=== PATIENT | male | born 1955 | race American Indian/Alaskan Native ===

== ENCOUNTER 2018-03-09 16:31 | Inpatient (IN) | payer MEDICARE ==
[2018-03-04 20:11] VITALS: BMI 26.7
--- NOTE | 2018-03-09 21:41 | CP.PCM.HP ---
History of Present Illness - History of Present Illness History of Present Illness: CC: rehab after cerebellar CVA HPI: This is a 63 y/o male with MHx significant for HTN, HLD, DM2, and recent cereballer CVA who comes in for acute rehab. Patient does not want to engage in interview, and provides only minimum answers and information. Denies any CP/SOB, dizziness, or focal weakness at this time. Apparently he had come into the ER with c/o SUN and lightheadedness worsening with movement. MRI at the time showed an acute cerebellar infarct. Patient appears to have not met criteria for TPA. ROS: Patient does not comply with ROS MHx: HTN, ?HLD, DM2, CVA SHx: Denies Allergies: states 'no', but NSAIDs listed as allergy Medications: Per list Family Hx: Denies Social Hx: Lives with family, denies tobacco (though listed as being a current smoker in other documentation), denies EtOH Does not provide info on surrogate dec mkr Present on Admission - Present on Admission Any Indicators Present on Admission: No Past Patient History - Infectious Disease Hx of Infectious Diseases: None - Past Social History Smoking Status: Current Some Days Smoker - CARDIAC Hx Cardiac Disorders: Yes Hx Hypertension: Yes - PULMONARY Hx Respiratory Disorders: Yes (SMOKES CIGARETTES 1 A DAY) - NEUROLOGICAL HX Cerebrovascular Accident: Yes (2017 LEFT SIDED WEAKNESS) - HEENT Hx HEENT Problems: No - RENAL Hx Chronic Kidney Disease: No - ENDOCRINE/METABOLIC Hx Diabetes Mellitus Type 2: Yes - HEMATOLOGICAL/ONCOLOGICAL Hx Blood Disorders: No - INTEGUMENTARY Hx Dermatological Problems: Yes Other/Comment: SCAR TO RIGHT LOWER BACK-BACK SX - MUSCULOSKELETAL/RHEUMATOLOGICAL Hx Falls: Yes - GASTROINTESTINAL Hx Gastrointestinal Disorders: No - GENITOURINARY/GYNECOLOGICAL Hx Genitourinary Disorders: No - PSYCHIATRIC Hx Psychophysiologic Disorder: No Hx Substance Use: No - SURGICAL HISTORY Hx Surgeries: Yes (RIGHTLATERAL LOWER BACK SX.) - ANESTHESIA Hx Anesthesia: No Meds Allergies/Adverse Reactions: Allergies Allergy/AdvReac Type Severity Reaction Status Date / Time NSAIDS (Non-Steroidal AdvReac Intermediate NAUSEA Verified 03/09/18 16:40 Anti-Inflamma Physical Exam - Constitutional Appears: No Acute Distress - Head Exam Head Exam: ATRAUMATIC, NORMOCEPHALIC - Eye Exam Eye Exam: EOMI, PERRL - ENT Exam ENT Exam: Mucous Membranes Moist - Neck Exam Neck exam: Positive for: Full Rom - Respiratory Exam Respiratory Exam: Clear to Auscultation Bilateral, NORMAL BREATHING PATTERN - Cardiovascular Exam Cardiovascular Exam: REGULAR RHYTHM, +S1, +S2 - GI/Abdominal Exam GI & Abdominal Exam: Normal Bowel Sounds, Soft - Extremities Exam Extremities exam: Positive for: full ROM, normal inspection - Neurological Exam Neurological exam: Alert, CN II-XII Intact (Patient does not participate in exam), Oriented x3 - Psychiatric Exam Psychiatric exam: Normal Affect, Normal Mood - Skin Skin Exam: Dry, Warm Assessment & Plan (1) Status post cerebrovascular accident Assessment and Plan: 63 y/o male with HTN, ?HLD, and DM2 presenting to rehab after cerebellar CVA. 1) s/p CVA -Rehab consult -PT/OT -control HTN, DM2, HLD -Cont ASA, Plavix, Lipitor 2) HTN -- cont lisinopril 3) DM2 -- continue metformin, glipizide; DM2 diet; accucheck with SSI for breakthru ser gluc 4) HLD -- statin as above 5) DVT PPx -- SQ Lovenox Status: Acute (2) HTN (hypertension) Status: Acute (3) HLD (hyperlipidemia) Status: Acute (4) DM2 (diabetes mellitus, type 2) Status: Acute (5) DVT prophylaxis Status: Acute
[2018-03-09] MEDS: Insulin Regular 100 units/ml SC SCH (23:11)
[2018-03-10 06:32] LABS: HEMOGLOBIN 14.6 g/dL (12.0-18.0); MEAN CELL VOLUME 94.5 fl (80.0-94.0); MEAN CORPUSCULAR HEMOGLOBIN 32.2 pg (27.0-31.0); RBC 4.54 Mil/uL (4.40-5.90); RED CELL DISTRIBUTION WIDTH 13.5 % (11.5-14.5); WHITE BLOOD COUNT 5.6 K/uL (4.8-10.8)
[2018-03-10 06:46] LABS: BLOOD UREA NITROGEN 27 mg/dl (9-20); CALCIUM 10.4 mg/dL (8.4-10.2); GFR NON-AFRICAN AMERICAN > 60
[2018-03-10] MEDS: Insulin Regular 100 units/ml SC SCH ×4 (07:01→21:00)
[2018-03-10] MEDS: Ammonium Lactate 12% Cream (140 g) TOP SCH (08:28)
[2018-03-10] MEDS: GlipiZIDE 5 mg SR Tab PO SCH (08:29)
[2018-03-10] MEDS: Enoxaparin 40 mg Syringe SC SCH (08:43)
[2018-03-10] MEDS: Pantoprazole 40 mg EC Tab PO SCH (08:46)
--- NOTE | 2018-03-10 20:06 | PCM.OPOC ---
Physiatry Overall Plan of Care - Overall Plan of Care Estimated Length of Stay in Weeks: 3 Rehab Impairment: Mobility, Gait, Cognition, Balance, Coordination Etiologic Diagnosis: Cerebrovascular Accident Rehab/Medical Prognosis: Fair - Anticipated Interventions Physical Therapy:: Yes Occupational Therapy:: Yes Speech Therapy:: Yes Recreational Therapy:: Yes - Therapy Goals Bed Mobility: Independent Ambulation: Supervision Functional Positional Changes:: Independent - Functional Outcomes Functional Outcomes: fair - Discharge Plan Identification of Barriers to Discharge: Cognition Discharge Destination: Home
--- NOTE | 2018-03-10 20:08 | CP.PCM.CON ---
History of Present Illness - History of Present Illness History of Present Illness: 63 year old male admitted with diagnosis of CVA,with problems of HTN, DM, hypermagnesiemia now for acute rehab Review of Systems - Musculoskeletal Musculoskeletal: Abnormal Gait, Muscle Weakness - Neurological Neurological: Abnormal Gait, Lack of Coordination Past Patient History - Infectious Disease Hx of Infectious Diseases: None - Past Medical History & Family History Past Medical History?: Yes - Past Social History Smoking Status: Current Some Days Smoker - CARDIAC Hx Hypercholesterolemia: Yes Hx Hypertension: Yes - PULMONARY Hx Respiratory Disorders: Yes (SMOKES CIGARETTES 1 A DAY) - NEUROLOGICAL HX Cerebrovascular Accident: Yes - HEENT Hx HEENT Problems: No - RENAL Hx Chronic Kidney Disease: No - ENDOCRINE/METABOLIC Hx Diabetes Mellitus Type 2: Yes - HEMATOLOGICAL/ONCOLOGICAL Hx Blood Disorders: No - INTEGUMENTARY Hx Dermatological Problems: Yes Other/Comment: SCAR TO RIGHT LOWER BACK-BACK SX - MUSCULOSKELETAL/RHEUMATOLOGICAL Hx Falls: Yes - GASTROINTESTINAL Hx Gastrointestinal Disorders: No - GENITOURINARY/GYNECOLOGICAL Hx Genitourinary Disorders: No - PSYCHIATRIC Hx Psychophysiologic Disorder: No Hx Substance Use: No - SURGICAL HISTORY Hx Surgeries: Yes (RIGHTLATERAL LOWER BACK SX.) - ANESTHESIA Hx Anesthesia: No Meds Allergies/Adverse Reactions: Allergies Allergy/AdvReac Type Severity Reaction Status Date / Time No Known Allergies Allergy Verified 03/10/18 05:45 - Medications Medications: Current Medications Aspirin (Ecotrin) 81 mg PO DAILY [facility] Last Admin: 03/10/18 08:29 Dose: 81 mg Atorvastatin Calcium (Lipitor) 40 mg PO DIN [facility] Last Admin: 03/10/18 17:11 Dose: 40 mg Clopidogrel Bisulfate (Plavix) 75 mg PO DAILY [facility] Last Admin: 03/10/18 08:45 Dose: 75 mg Enoxaparin Sodium (Lovenox) 40 mg SC DAILY [facility]; Protocol Last Admin: 03/10/18 08:43 Dose: 40 mg Glipizide (Glucotrol Xl) 5 mg PO DAILY [facility] Last Admin: 03/10/18 08:29 Dose: 5 mg Insulin Human Regular (Humulin R) [address] [facility]; Protocol Last Admin: 03/10/18 17:13 Dose: Not Given Lactic Acid (Lac-Hydrin 12% Cream (140 G)) 0 ea TOP DAILY [facility] Last Admin: 03/10/18 08:28 Dose: 1 applic Lisinopril (Zestril) 20 mg PO DAILY [facility] Last Admin: 03/10/18 08:29 Dose: 20 mg Meclizine HCl (Antivert) 12.5 mg PO Q8 [facility] Last Admin: 03/10/18 13:46 Dose: 12.5 mg Metformin HCl (Glucophage) 1,000 mg PO BID [facility] Last Admin: 03/10/18 17:14 Dose: Not Given Pantoprazole Sodium (Protonix Ec Tab) 40 mg PO DAILY [facility] Last Admin: 03/10/18 08:46 Dose: 40 mg Physical Exam - Constitutional Appears: Well - Head Exam Head Exam: ATRAUMATIC, NORMAL INSPECTION, NORMOCEPHALIC - Eye Exam Eye Exam: EOMI, Normal appearance Pupil Exam: NORMAL ACCOMODATION, PERRL - ENT Exam ENT Exam: Mucous Membranes Moist, Normal Exam - Neck Exam Neck exam: Positive for: Normal Inspection - Respiratory Exam Respiratory Exam: Clear to Auscultation Bilateral, NORMAL BREATHING PATTERN - Cardiovascular Exam Cardiovascular Exam: REGULAR RHYTHM - GI/Abdominal Exam GI & Abdominal Exam: Normal Bowel Sounds - Rectal Exam Rectal Exam: NORMAL INSPECTION - Exam External exam: NORMAL EXTERNAL EXAM - Extremities Exam Extremities exam: Positive for: normal inspection Additional comments: muscle strength 3/5 - Back Exam Back exam: NORMAL INSPECTION - Neurological Exam Neurological exam: Alert, Reflexes Normal - Psychiatric Exam Psychiatric exam: Normal Mood - Skin Skin Exam: Normal Color, Warm Results - Vital Signs Recent Vital Signs: Last Vital Signs Temp 98.1 F 03/10/18 08:14 Pulse 83 03/10/18 09:32 Resp 22 03/10/18 08:14 BP 128/59 L 03/10/18 08:29 Pulse Ox 97 03/10/18 08:14 - Labs Result Diagrams: 03/10/18 05:15 03/10/18 05:15 Labs: Laboratory Results - last 24 hr 03/09/18 03/10/18 03/10/18 22:57 05:15 05:15 WBC 5.6 RBC 4.54 Hgb 14.6 Hct 42.9 MCV 94.5 H MCH 32.2 H MCHC 34.0 RDW 13.5 Plt Count 278 Sodium 138 Potassium 4.6 Chloride 102 Carbon Dioxide 26 Anion Gap 15 BUN 27 H Creatinine 1.1 Est GFR ( Amer) > 60 Est GFR (Non-Af Amer) > 60 POC Glucose (mg/dL) 145 H Random Glucose 119 H Calcium 10.4 H 03/10/18 03/10/18 03/10/18 06:51 11:32 17:30 WBC RBC Hgb Hct MCV MCH MCHC RDW Plt Count Sodium Potassium Chloride Carbon Dioxide Anion Gap BUN Creatinine Est GFR ( Amer) Est GFR (Non-Af Amer) POC Glucose (mg/dL) 101 123 H 98 Random Glucose Calcium Assessment & Plan (1) DM2 (diabetes mellitus, type 2) Status: Acute (2) DVT prophylaxis Status: Acute (3) HLD (hyperlipidemia) Status: Acute (4) HTN (hypertension) Status: Acute (5) Status post cerebrovascular accident Assessment and Plan: plan for physical, occupational, recreational and speech therapy program for range of motion, strengthening, transfers and gait training . Written overall plan of care. Status: Acute (6) Dizziness Status: Acute (7) Near syncope Status: Acute
[2018-03-11] MEDS: Insulin Regular 100 units/ml SC SCH ×4 (07:00→21:29)
[2018-03-11] MEDS: Ammonium Lactate 12% Cream (140 g) TOP SCH (08:45)
[2018-03-11] MEDS: Pantoprazole 40 mg EC Tab PO SCH (08:47)
[2018-03-11] MEDS: GlipiZIDE 5 mg SR Tab PO SCH (08:47)
[2018-03-11] MEDS: Enoxaparin 40 mg Syringe SC SCH (08:47)
--- NOTE | 2018-03-11 09:57 | CP.PCM.PN ---
Subjective - Date & Time of Evaluation Date of Evaluation: 03/11/18 Time of Evaluation: 10:00 - Subjective Subjective: Patient seen bedside . Appears simon,flat affect, angry , responding with few words .Hemodynmaically stable,. afebrile No acute issues overnight Objective - Vital Signs/Intake and Output Vital Signs (last 24 hours): Temp Pulse Resp BP Pulse Ox 97.8 F 81 19 100/54 L 98 03/11/18 08:23 03/11/18 08:23 03/11/18 08:23 03/11/18 08:47 03/11/18 08:23 - Medications Medications: Current Medications Aspirin (Ecotrin) 81 mg PO DAILY [facility] Last Admin: 03/11/18 08:45 Dose: 81 mg Atorvastatin Calcium (Lipitor) 40 mg PO DIN [facility] Last Admin: 03/10/18 17:11 Dose: 40 mg Clopidogrel Bisulfate (Plavix) 75 mg PO DAILY [facility] Last Admin: 03/11/18 08:47 Dose: 75 mg Enoxaparin Sodium (Lovenox) 40 mg SC DAILY [facility]; Protocol Last Admin: 03/11/18 08:47 Dose: 40 mg Glipizide (Glucotrol Xl) 5 mg PO DAILY [facility] Last Admin: 03/11/18 08:47 Dose: 5 mg Insulin Human Regular (Humulin R) [address] [facility]; Protocol Last Admin: 03/11/18 07:00 Dose: Not Given Lactic Acid (Lac-Hydrin 12% Cream (140 G)) 0 ea TOP DAILY [facility] Last Admin: 03/11/18 08:45 Dose: 1 applic Lisinopril (Zestril) 20 mg PO DAILY [facility] Last Admin: 03/11/18 08:47 Dose: 20 mg Meclizine HCl (Antivert) 12.5 mg PO Q8 [facility] Last Admin: 03/11/18 05:40 Dose: 12.5 mg Metformin HCl (Glucophage) 1,000 mg PO BID [facility] Last Admin: 03/11/18 08:48 Dose: Not Given Pantoprazole Sodium (Protonix Ec Tab) 40 mg PO DAILY [facility] Last Admin: 03/11/18 08:47 Dose: 40 mg - Labs Labs: 03/10/18 05:15 03/10/18 05:15 - Constitutional Appears: Non-toxic, No Acute Distress - Head Exam Head Exam: ATRAUMATIC, NORMOCEPHALIC - Eye Exam Eye Exam: EOMI, PERRL Pupil Exam: NORMAL ACCOMODATION - ENT Exam ENT Exam: Mucous Membranes Moist, Normal Exam - Neck Exam Neck Exam: Full ROM, Normal Inspection - Respiratory Exam Respiratory Exam: NORMAL BREATHING PATTERN. absent: Respiratory Distress - Cardiovascular Exam Cardiovascular Exam: REGULAR RHYTHM, RRR, +S1, +S2. absent: JVD - GI/Abdominal Exam GI & Abdominal Exam: Soft, Normal Bowel Sounds. absent: Tenderness, Rebound - Rectal Exam Rectal Exam: Deferred - Extremities Exam Extremities Exam: Normal Capillary Refill, Normal Inspection. absent: Pedal Edema - Neurological Exam Neurological Exam: Alert, Awake, CN II-XII Intact, Oriented x3 - Psychiatric Exam Psychiatric exam: Flat Affect - Skin Skin Exam: Dry, Normal Color, Warm Assessment and Plan - Assessment and Plan (Free Text) Assessment: 63 y/o male with PMH of HTN, HLD, DM2, had presented recently to ER with headache and lightheadedness worsening with movement. MRI at the time showed an acute cerebellar infarct. Patient did not met criteria for TPA.Now he is in acute rehab for PT. Denies any CP/SOB, dizziness, or focal weakness at this time. 1. Acute Cerebellar infarct Continue PT on ASa, plavix, statin better BP and glycemic control psychology consult on Meclizine PRN for dizziness 2. Hypertension controlled continue lisinopril 3. DM complaining of diarrhea from Metformin and refusing to take it Decreased dose from 1000 to 850 mg po BID Increase Glucotrol from 5 to 10 mg PO QD Continue Accuchecsk, insulin coverage and diabetic diet 4. Dyslipidemia on statin 5. DVt prophylaxis on Lovenox
[2018-03-11] MEDS: GlipiZIDE 10 mg SR Tab PO SCH (10:00)
--- NOTE | 2018-03-11 12:06 | CP.PCM.PN ---
Subjective - Date & Time of Evaluation Date of Evaluation: 03/11/18 Time of Evaluation: 12:00 - Subjective Subjective: no acute complaints at present Objective - Vital Signs/Intake and Output Vital Signs (last 24 hours): Temp Pulse Resp BP Pulse Ox 97.8 F 81 19 100/54 L 98 03/11/18 08:23 03/11/18 08:23 03/11/18 08:23 03/11/18 08:47 03/11/18 08:23 - Medications Medications: Current Medications Aspirin (Ecotrin) 81 mg PO DAILY [facility] Last Admin: 03/11/18 08:45 Dose: 81 mg Atorvastatin Calcium (Lipitor) 40 mg PO DIN [facility] Last Admin: 03/10/18 17:11 Dose: 40 mg Clopidogrel Bisulfate (Plavix) 75 mg PO DAILY [facility] Last Admin: 03/11/18 08:47 Dose: 75 mg Enoxaparin Sodium (Lovenox) 40 mg SC DAILY [facility]; Protocol Last Admin: 03/11/18 08:47 Dose: 40 mg Glipizide (Glucotrol Xl) 10 mg PO BRK [facility] Last Admin: 03/11/18 10:00 Dose: Not Given Insulin Human Regular (Humulin R) 0 units SC [facility]; Protocol Last Admin: 03/11/18 11:19 Dose: Not Given Lactic Acid (Lac-Hydrin 12% Cream (140 G)) 0 ea TOP DAILY [facility] Last Admin: 03/11/18 08:45 Dose: 1 applic Lisinopril (Zestril) 20 mg PO DAILY [facility] Last Admin: 03/11/18 08:47 Dose: 20 mg Meclizine HCl (Antivert) 12.5 mg PO Q8 [facility] Last Admin: 03/11/18 05:40 Dose: 12.5 mg Metformin HCl (Glucophage) 850 mg PO BIDWM [facility] Last Admin: 03/11/18 10:00 Dose: Not Given Pantoprazole Sodium (Protonix Ec Tab) 40 mg PO DAILY [facility] Last Admin: 03/11/18 08:47 Dose: 40 mg - Labs Labs: 03/10/18 05:15 03/10/18 05:15 - Head Exam Head Exam: ATRAUMATIC, NORMAL INSPECTION, NORMOCEPHALIC - Eye Exam Eye Exam: EOMI, Normal appearance, PERRL Pupil Exam: NORMAL ACCOMODATION - ENT Exam ENT Exam: Mucous Membranes Moist, Normal Exam - Neck Exam Neck Exam: Normal Inspection - Respiratory Exam Respiratory Exam: NORMAL BREATHING PATTERN - Cardiovascular Exam Cardiovascular Exam: REGULAR RHYTHM - GI/Abdominal Exam GI & Abdominal Exam: Soft, Normal Bowel Sounds - Exam External exam: NORMAL EXTERNAL EXAM - Extremities Exam Extremities Exam: Full ROM, Normal Capillary Refill, Normal Inspection - Back Exam Back Exam: NORMAL INSPECTION - Neurological Exam Neurological Exam: Alert, Awake Neuro motor strength exam: Left Upper Extremity: 3, Right Upper Extremity: 3, Left Lower Extremity: 3, Right Lower Extremity: 3 - Psychiatric Exam Psychiatric exam: Normal Affect, Normal Mood - Skin Skin Exam: Dry, Intact Assessment and Plan (1) DM2 (diabetes mellitus, type 2) Status: Acute (2) DVT prophylaxis Status: Acute (3) HLD (hyperlipidemia) Status: Acute (4) HTN (hypertension) Status: Acute (5) Status post cerebrovascular accident Assessment & Plan: pt, ot rec and st for team conference today Status: Acute (6) Dizziness Status: Acute (7) Near syncope Status: Acute
--- NOTE | 2018-03-11 12:10 | PCM.PSYTMC ---
Acute Rehab Team Conference - - Vital Signs: Vital Signs (Last 8 Hours): Vital Signs 03/11/18 03/11/18 03/11/18 08:23 08:47 12:00 Temperature 97.8 F 97.8 F Pulse Rate 81 81 Respiratory 19 19 Rate Blood Pressure 100/59 L 100/54 L 100/59 L O2 Sat by Pulse 98 Oximetry Pain: 0 - Precautions: Precautions: Fall Prevention - Medications/Other Issues: Comment: REFUSING TO TAKE METFORMIN. AWARE - Consults: Comment: DR. RODRIGUEZ - Toileting: Toileting: Minimal Assistance - Bladder Management: Bladder Pattern: Normal Voiding Method: Toilet, Urinal Bladder Management: Supervision Other Intervention:: 0 - Transfers: Transfers: Minimal Assistance - ADL's: ADL's: Minimal Assistance - Pain Management: Other Intervention:: NONE - Patient/Family Teaching: Other Intervention:: CARE POST CVA AND SAFETY PRECAUTIONS - Goals/Time Frame: Comment: PER MULTIDISCIPLINARY CARE PLAN AND GOALS - Provider: Registered Nurse:: Brenda Cabrera Physical Therapy - Bed Mobility Bed Mobility: Contact Guard - Transfers Wheelchair to Mat: Contact Guard Sit to Stand: Contact Guard - Ambulation Level of Assistance: Contact Guard, Minimal Assistance Distance (ft.): 150 Assistive Devices: N/A Comment: Occasional episodes of LOB requiring min A - Stair Negotiation Stairs: Level of Assistance: Minimal Assistance Number of Stairs: 6 Stairs: Assistive Devices: Left Handrail, Right Handrail - Standing Balance Static Stand: Supervision - Pain Pain (assessed during therapy session): 0 - Insight/Carryover Insight/Carryover: Fair - Patient/Family Education Comment: CVA recovery, safety, POC - Assessment/Plan Assessment: Mr. Medina presents with strength and coordination deficits in BLEs (L>R upon assessment) as well as impaired standing balance and endurance resulting in decreased (I) with functional mobility skills. Pt currently requi res CGA for bed mobiltiy, CGA for transfers, CGA/min A for ambulation without AD, and CGA/min A for stair negotiation . Pt previously (I) in PLOF. Pt will benefit from skilled PT interventions to address deficits, reduce fall risk, and maximzie functional independence. Pt will likely require intermittent to 24 hour Supervision following complete rehab stay. [ End ] - Goals Tiimeframe: 2 weeks Goals: Sit < > supine (I). Sit < > stand (I). Pt will ambulate 500 ft (I). Pt will ascend/descend flight of stairs mod I - Provider Physical Therapist:: Justina Johnson License Number:: [id number] Occupational Therapy - Arousal/Attention/Orientation Level of Consciousness: Awake, Alert, Forgetful Patient Orientation: Person, Place, Time - ADL/IADL Self Feeding: Set-up Help Grooming: Supervision, Set-up Help Dressing-Upper Ext: Supervision, Verbal Cues, Set-up Help Dressing-Lower Ext: Verbal Cues, Contact Guard - Sitting Balance Static Sitting: Independent without upper extremity support Dynamic Sitting: Reaches across midline, Reaches out of base of support, Requires supervision - Transfers Wheelchair to Bed Transfers: Contact Guard Toilet Transfers: Contact Guard - Wheelchair Management Level of Assistance: Not Applicable - Upper Extremity Status Right Upper Extremity Comment: R UE AROM: WNL. R UE strength: 5/5. Sensation: WNL Left Upper Extremity Comment: L UE AROM: WFL. Decreased coordination L UE. L UE strength: 4/5. Sensation: WNL - Pain Comment: No c/o pain - Insight/Carryover Insight/Carryover: Fair - Patient/Family Education Comment: Educated pt on rehab process, role of OT, to use call dumas for safety and necessity for rehab at this time. - Assessment/Plan Assessment: Patient seen for OT initial evaluation 03-10-18. Patient presents with decreased near/distant visual acuity, decreased dynamic stand balance, decreased L UE strength/coordination and decreased cognition/safety. Recommend OT services 5-6x's/wk to focus on the above deficits and increase functional level of I for safe d/c home. - Goals Timeframe: 5 days Comment: Bed mobility: Mod I. Toilet and bed<>w/c transfers: Close S. LB ADL's: Close S. Toileting: Close S - Provider Occupational Therapist:: Kristin Simms License Number: [id number] Speech Therapy - Consult Information Patient on Program: Yes Medical Diagnosis: CVA Treatment Diagnosis: mild-moderate cognitive deficits - Assessment Problem Solving Impairment: Moderate Memory Impairment: Mild - Plan Assessment: Rosalio Medina presents with mild-moderate cognitive linguistic deficits characterized by impaired short-term memory, thought organization, reasoning, problem solving, and insight all negatively impacting pt's safety and functional independence. Pt would benefit from ST 3-5x/week for improved cognition and safety. Barriers to learning include cognitive deficits, impaired insight, and fluctuating pt motivation. Plan: Continue Speech/Language Therapy Frequency: 3-5 times per week Duration: 1 week Goals/Timeframe: Please see IE completed 03/10/18 for goals/POC Recommendations: ST 3-5x/week for improved cognition/safety - Provider Therapist: Dulce Simms License Number: [id number] Recreational Therapy - Participation Participation: Monitors His/Her Own Leisure Time - Attendance Attendance: Daily - Activities Leisure Activities: Television - Socialization Level of Socialization: Initiates/interacts with caregivers but not with peer - Diversional Time Diversional Time: television - Assessment Assessment/Plan: Pt was oriented to benefits and purpose of participating in recreation therapy sessions throughout stay on unit. Throughout evaluation, pt's affect was flat and withdrawn when responding to questions. Pt presents with poor safety insight and poor insight of deficits. Pt declined to participate in leisure task and wanted to go back to room to rest in bed. Pt attempted to get into bed with bed rails still up on the bed and presented with no insight. Problems Currently Limiting Participation: decrease leisure awareness level, poor safety insight, withdrawn behavior, decrease leisure interest, L side residual weakness Goals and Time Frame: Pt will be encouraged to participate in 1:1 and group recreation therapy sessions 3-5x week to improve leisure awareness level, attention to task, arousal level, and improve insight of safety and deficits. Nutrition - Current Diet Current Diet/Supplement/Feedings: Moderate consistent CHO, 2 gram Na low fat/low cholesterol diet - Appetite Percent Meal Consumed: 50-74% - Comments Comments: Pt consumes 100% of what he likes, severely limiting CHO, Refusing pancakes, bread. - Assessment/Goals/Time Frame Assessments/Goals/Time Frame: 1. Pt to consume 75-100% of meals. 2. Blood glucoses to be between 70-180 mg/dl. For follow up 03/17/2018 - Provider Provider: Torito Reynoso Case Management - Discharge Plan Discharge Plan: Home with significant other/family Rehabilitation Plan - Treatment Plan Treatment Plan: Physical Therapy, Occupational Therapy, Speech, Dietary, Patient/Family Education - Recommendation Recommendation: Physical Therapy, Occupational Therapy, Speech, Dietary, Patient/Family Education - Discharge Plan Discharge to: Home
[2018-03-12] MEDS: Insulin Regular 100 units/ml SC SCH ×4 (06:50→21:49)
[2018-03-12] MEDS: GlipiZIDE 10 mg SR Tab PO SCH (08:24)
[2018-03-12] MEDS: Pantoprazole 40 mg EC Tab PO SCH (09:28)
[2018-03-12] MEDS: Ammonium Lactate 12% Cream (140 g) TOP SCH (09:28)
[2018-03-12] MEDS: Enoxaparin 40 mg Syringe SC SCH (09:29)
--- NOTE | 2018-03-12 20:33 | CP.PCM.PN ---
Subjective - Date & Time of Evaluation Date of Evaluation: 03/12/18 Time of Evaluation: 17:00 - Subjective Subjective: no acute complaints of pain Objective - Vital Signs/Intake and Output Vital Signs (last 24 hours): Temp Pulse Resp BP Pulse Ox 97.5 F L 88 21 117/65 97 03/12/18 08:35 03/12/18 15:07 03/12/18 08:35 03/12/18 09:28 03/12/18 15:07 - Medications Medications: Current Medications Aspirin (Ecotrin) 81 mg PO DAILY [facility] Last Admin: 03/12/18 09:28 Dose: 81 mg Atorvastatin Calcium (Lipitor) 40 mg PO DIN [facility] Last Admin: 03/12/18 17:25 Dose: 40 mg Clopidogrel Bisulfate (Plavix) 75 mg PO DAILY [facility] Last Admin: 03/12/18 09:28 Dose: 75 mg Enoxaparin Sodium (Lovenox) 40 mg SC DAILY [facility]; Protocol Last Admin: 03/12/18 09:29 Dose: 40 mg Glipizide (Glucotrol Xl) 10 mg PO BRK [facility] Last Admin: 03/12/18 08:24 Dose: Not Given Insulin Human Regular (Humulin R) 0 units SC ACHS [facility]; Protocol Last Admin: 03/12/18 17:26 Dose: 1 unit Lactic Acid (Lac-Hydrin 12% Cream (140 G)) 0 ea TOP DAILY [facility] Last Admin: 03/12/18 09:28 Dose: 1 applic Lisinopril (Zestril) 20 mg PO DAILY [facility] Last Admin: 03/12/18 09:28 Dose: 20 mg Meclizine HCl (Antivert) 12.5 mg PO Q8 [facility] Last Admin: 03/12/18 13:26 Dose: 12.5 mg Metformin HCl (Glucophage) 850 mg PO BIDWM [facility] Last Admin: 03/12/18 17:26 Dose: Not Given Pantoprazole Sodium (Protonix Ec Tab) 40 mg PO DAILY [facility] Last Admin: 03/12/18 09:28 Dose: 40 mg - Labs Labs: 03/10/18 05:15 03/10/18 05:15 - Constitutional Appears: Well - Head Exam Head Exam: ATRAUMATIC, NORMAL INSPECTION, NORMOCEPHALIC - Eye Exam Eye Exam: EOMI, Normal appearance Pupil Exam: NORMAL ACCOMODATION, PERRL - ENT Exam ENT Exam: Mucous Membranes Moist - Neck Exam Neck Exam: Normal Inspection - Respiratory Exam Respiratory Exam: Clear to Ausculation Bilateral - Cardiovascular Exam Cardiovascular Exam: REGULAR RHYTHM - GI/Abdominal Exam GI & Abdominal Exam: Soft, Normal Bowel Sounds - Rectal Exam Rectal Exam: NORMAL INSPECTION - Exam External exam: NORMAL EXTERNAL EXAM - Extremities Exam Extremities Exam: Full ROM, Normal Capillary Refill - Back Exam Back Exam: NORMAL INSPECTION - Neurological Exam Neurological Exam: Alert, Awake Neuro motor strength exam: Left Upper Extremity: 3, Right Upper Extremity: 3, Left Lower Extremity: 3, Right Lower Extremity: 3 - Psychiatric Exam Psychiatric exam: Normal Affect - Skin Skin Exam: Dry, Normal Color Assessment and Plan (1) DM2 (diabetes mellitus, type 2) Status: Acute (2) DVT prophylaxis Status: Acute (3) HLD (hyperlipidemia) Status: Acute (4) HTN (hypertension) Status: Acute (5) Status post cerebrovascular accident Assessment & Plan: plan to continue with physical, occupational, rec and speech therapy program Status: Acute (6) Dizziness Status: Acute (7) Near syncope Status: Acute
[2018-03-13 06:27] LABS: HEMOGLOBIN 13.9 g/dL (12.0-18.0); MEAN CELL VOLUME 94.5 fl (80.0-94.0); MEAN CORPUSCULAR HEMOGLOBIN 31.5 pg (27.0-31.0); MEAN CORPUSCULAR HGB CONC 33.3 g/dL (33.0-37.0); RBC 4.41 Mil/uL (4.40-5.90); RED CELL DISTRIBUTION WIDTH 13.5 % (11.5-14.5); WHITE BLOOD COUNT 5.4 K/uL (4.8-10.8)
[2018-03-13] MEDS: Insulin Regular 100 units/ml SC SCH ×4 (06:40→21:45)
[2018-03-13 06:43] LABS: BLOOD UREA NITROGEN 29 mg/dl (9-20); CALCIUM 9.6 mg/dL (8.4-10.2); GFR NON-AFRICAN AMERICAN > 60
[2018-03-13] MEDS: Pantoprazole 40 mg EC Tab PO SCH (09:16)
[2018-03-13] MEDS: Enoxaparin 40 mg Syringe SC SCH (09:16)
[2018-03-13] MEDS: Ammonium Lactate 12% Cream (140 g) TOP SCH (09:16)
[2018-03-13] MEDS: GlipiZIDE 10 mg SR Tab PO SCH (09:16)
--- NOTE | 2018-03-13 13:44 | CP.PCM.PN ---
Subjective - Date & Time of Evaluation Date of Evaluation: 03/13/18 Time of Evaluation: 13:44 - Subjective Subjective: doing well no complaints hd stable nad Objective - Vital Signs/Intake and Output Vital Signs (last 24 hours): Temp Pulse Resp BP Pulse Ox 97.9 F 58 L 18 105/69 96 03/13/18 09:13 03/13/18 09:15 03/13/18 09:13 03/13/18 09:15 03/13/18 09:13 Intake and Output: GEN: WDWN, ALERT, COOPERATIVE HEENT: NCAT, PERRL, EOMI HEART: +S1+S2, RRR NO MRG LUNG: CTAB, NO WRR ABD: SOFT BSX4 NT ND NO HSM NO MASS EXT: WARM, WELL PERFUSED NEURO: AWAKE, ALERT, REFLEXES NORMAL SKIN: WARM DRY PSYCH: NORMAL MOOD NORMAL AFFECT - Medications Medications: Current Medications Aspirin (Ecotrin) 81 mg PO DAILY [facility] Last Admin: 03/13/18 09:16 Dose: 81 mg Atorvastatin Calcium (Lipitor) 40 mg PO DIN [facility] Last Admin: 03/12/18 17:25 Dose: 40 mg Clopidogrel Bisulfate (Plavix) 75 mg PO DAILY [facility] Last Admin: 03/13/18 09:16 Dose: 75 mg Enoxaparin Sodium (Lovenox) 40 mg SC DAILY [facility]; Protocol Last Admin: 03/13/18 09:16 Dose: 40 mg Glipizide (Glucotrol Xl) 10 mg PO BRK [facility] Last Admin: 03/13/18 09:16 Dose: 10 mg Insulin Human Regular (Humulin R) 0 units SC ACHS [facility]; Protocol Last Admin: 03/13/18 11:52 Dose: Not Given Lactic Acid (Lac-Hydrin 12% Cream (140 G)) 0 ea TOP DAILY [facility] Last Admin: 03/13/18 09:16 Dose: 1 applic Lisinopril (Zestril) 20 mg PO DAILY [facility] Last Admin: 03/13/18 09:15 Dose: 20 mg Meclizine HCl (Antivert) 12.5 mg PO Q8 [facility] Last Admin: 03/13/18 13:33 Dose: 12.5 mg Metformin HCl (Glucophage) 850 mg PO BIDWM [facility] Last Admin: 03/13/18 09:17 Dose: Not Given Pantoprazole Sodium (Protonix Ec Tab) 40 mg PO DAILY [facility] Last Admin: 03/13/18 09:16 Dose: 40 mg - Labs Labs: 03/13/18 05:20 03/13/18 05:20 Assessment and Plan - Assessment and Plan (Free Text) Plan: 63 y/o male with PMH of HTN, HLD, DM2, had presented recently to ER with headache and lightheadedness worsening with movement. MRI at the time showed an acute cerebellar infarct. Patient did not met criteria for TPA.Now he is in acute rehab for PT. Denies any CP/SOB, dizziness, or focal weakness at this time. 1. Acute Cerebellar infarct Continue PT on ASa, plavix, statin better BP and glycemic control psychology consult on Meclizine PRN for dizziness 2. Hypertension controlled continue lisinopril 3. DM complaining of diarrhea from Metformin and refusing to take it Decreased dose from 1000 to 850 mg po BID Increase Glucotrol from 5 to 10 mg PO QD Continue Accuchecsk, insulin coverage and diabetic diet 4. Dyslipidemia on statin 5. DVt prophylaxis on Lovenox
--- NOTE | 2018-03-13 14:56 | CP.PCM.PN ---
Subjective - Date & Time of Evaluation Date of Evaluation: 03/13/18 Time of Evaluation: 14:00 - Subjective Subjective: no acute complaints at present Objective - Vital Signs/Intake and Output Vital Signs (last 24 hours): Temp Pulse Resp BP Pulse Ox 97.9 F 58 L 18 105/69 96 03/13/18 09:13 03/13/18 09:15 03/13/18 09:13 03/13/18 09:15 03/13/18 09:13 - Medications Medications: Current Medications Aspirin (Ecotrin) 81 mg PO DAILY [facility] Last Admin: 03/13/18 09:16 Dose: 81 mg Atorvastatin Calcium (Lipitor) 40 mg PO DIN [facility] Last Admin: 03/12/18 17:25 Dose: 40 mg Clopidogrel Bisulfate (Plavix) 75 mg PO DAILY [facility] Last Admin: 03/13/18 09:16 Dose: 75 mg Enoxaparin Sodium (Lovenox) 40 mg SC DAILY [facility]; Protocol Last Admin: 03/13/18 09:16 Dose: 40 mg Glipizide (Glucotrol Xl) 10 mg PO BRK [facility] Last Admin: 03/13/18 09:16 Dose: 10 mg Insulin Human Regular (Humulin R) 0 units SC ACHS [facility]; Protocol Last Admin: 03/13/18 11:52 Dose: Not Given Lactic Acid (Lac-Hydrin 12% Cream (140 G)) 0 ea TOP DAILY [facility] Last Admin: 03/13/18 09:16 Dose: 1 applic Lisinopril (Zestril) 20 mg PO DAILY [facility] Last Admin: 03/13/18 09:15 Dose: 20 mg Meclizine HCl (Antivert) 12.5 mg PO Q8 [facility] Last Admin: 03/13/18 13:33 Dose: 12.5 mg Metformin HCl (Glucophage) 850 mg PO BIDWM [facility] Last Admin: 03/13/18 09:17 Dose: Not Given Pantoprazole Sodium (Protonix Ec Tab) 40 mg PO DAILY [facility] Last Admin: 03/13/18 09:16 Dose: 40 mg - Labs Labs: 03/13/18 05:20 03/13/18 05:20 - Head Exam Head Exam: ATRAUMATIC, NORMAL INSPECTION, NORMOCEPHALIC - Eye Exam Eye Exam: EOMI, Normal appearance, PERRL Pupil Exam: NORMAL ACCOMODATION - ENT Exam ENT Exam: Mucous Membranes Moist, Normal Exam - Neck Exam Neck Exam: Normal Inspection - Respiratory Exam Respiratory Exam: Clear to Ausculation Bilateral, NORMAL BREATHING PATTERN - Cardiovascular Exam Cardiovascular Exam: REGULAR RHYTHM - GI/Abdominal Exam GI & Abdominal Exam: Soft, Normal Bowel Sounds - Rectal Exam Rectal Exam: NORMAL INSPECTION - Exam External exam: NORMAL EXTERNAL EXAM - Extremities Exam Extremities Exam: Full ROM, Normal Capillary Refill - Back Exam Back Exam: NORMAL INSPECTION - Neurological Exam Neurological Exam: Alert, Awake Neuro motor strength exam: Left Upper Extremity: 3, Right Upper Extremity: 3, Left Lower Extremity: 3, Right Lower Extremity: 3 - Psychiatric Exam Psychiatric exam: Normal Affect, Normal Mood - Skin Skin Exam: Normal Color Assessment and Plan (1) DM2 (diabetes mellitus, type 2) Status: Acute (2) DVT prophylaxis Status: Acute (3) HLD (hyperlipidemia) Status: Acute (4) HTN (hypertension) Status: Acute (5) Status post cerebrovascular accident Assessment & Plan: plan for physical, occupational, rec and speech therapy Status: Acute (6) Dizziness Status: Acute (7) Near syncope Status: Acute
[2018-03-14] MEDS: Insulin Regular 100 units/ml SC SCH ×4 (07:46→21:32)
[2018-03-14] MEDS: GlipiZIDE 10 mg SR Tab PO SCH (08:50)
[2018-03-14] MEDS: Enoxaparin 40 mg Syringe SC SCH (08:51)
[2018-03-14] MEDS: Pantoprazole 40 mg EC Tab PO SCH (08:51)
[2018-03-14] MEDS: Ammonium Lactate 12% Cream (140 g) TOP SCH (08:51)
[2018-03-15] MEDS: Insulin Regular 100 units/ml SC SCH ×4 (07:00→23:08)
[2018-03-15] MEDS: Enoxaparin 40 mg Syringe SC SCH (08:51)
[2018-03-15] MEDS: GlipiZIDE 10 mg SR Tab PO SCH (08:51)
[2018-03-15] MEDS: Pantoprazole 40 mg EC Tab PO SCH (08:51)
[2018-03-15] MEDS: Ammonium Lactate 12% Cream (140 g) TOP SCH (08:52)
[2018-03-16 06:29] LABS: HEMOGLOBIN 14.5 g/dL (12.0-18.0); MEAN CELL VOLUME 94.2 fl (80.0-94.0); MEAN CORPUSCULAR HEMOGLOBIN 32.1 pg (27.0-31.0); RBC 4.53 Mil/uL (4.40-5.90); RED CELL DISTRIBUTION WIDTH 13.4 % (11.5-14.5); WHITE BLOOD COUNT 5.2 K/uL (4.8-10.8)
[2018-03-16] MEDS: Insulin Regular 100 units/ml SC SCH ×3 (06:31→21:00)
[2018-03-16 06:50] LABS: BLOOD UREA NITROGEN 27 mg/dl (9-20); CALCIUM 9.7 mg/dL (8.4-10.2); GFR NON-AFRICAN AMERICAN 56
[2018-03-16] MEDS: Enoxaparin 40 mg Syringe SC SCH (08:20)
[2018-03-16] MEDS: Ammonium Lactate 12% Cream (140 g) TOP SCH (08:20)
[2018-03-16] MEDS: Pantoprazole 40 mg EC Tab PO SCH (08:21)
[2018-03-16] MEDS: GlipiZIDE 10 mg SR Tab PO SCH (08:21)
--- NOTE | 2018-03-16 12:26 | CP.PCM.PN ---
Subjective - Date & Time of Evaluation Date of Evaluation: 03/16/18 Time of Evaluation: 12:24 - Subjective Subjective: doing well no complaints hd stable nad Objective - Vital Signs/Intake and Output Vital Signs (last 24 hours): Temp Pulse Resp BP Pulse Ox 97.8 F 91 H 20 136/73 100 03/16/18 08:23 03/16/18 08:23 03/16/18 08:23 03/16/18 08:23 03/16/18 08:23 Intake and Output: Vitals Reviewed GEN: WDWN, alert, cooperative HEENT: NCAT, PERRL, EOMI HEART: RRR, +S1S2, NO MRG LUNG: CTAB, NO WRR ABD: soft, NT, ND, No HSM, No masses EXT: normal pedal pulses NEURO: awake, alert SKIN: warm, dry PSYCH: normal mood, normal affect - Medications Medications: Current Medications Aspirin (Ecotrin) 81 mg PO DAILY [facility] Last Admin: 03/16/18 08:21 Dose: 81 mg Atorvastatin Calcium (Lipitor) 40 mg PO DIN [facility] Last Admin: 03/15/18 17:11 Dose: 40 mg Clopidogrel Bisulfate (Plavix) 75 mg PO DAILY [facility] Last Admin: 03/16/18 08:21 Dose: 75 mg Glipizide (Glucotrol Xl) 10 mg PO BRK [facility] Last Admin: 03/16/18 08:21 Dose: 10 mg Insulin Human Regular (Humulin R) 0 units SC ACHS [facility]; Protocol Last Admin: 03/16/18 06:31 Dose: Not Given Lactic Acid (Lac-Hydrin 12% Cream (140 G)) 0 ea TOP DAILY [facility] Last Admin: 03/16/18 08:20 Dose: 1 applic Lisinopril (Zestril) 20 mg PO DAILY [facility] Last Admin: 03/16/18 08:19 Dose: 20 mg Meclizine HCl (Antivert) 12.5 mg PO Q8 [facility] Last Admin: 03/16/18 06:31 Dose: 12.5 mg Metformin HCl (Glucophage) 850 mg PO BIDWM [facility] Last Admin: 03/16/18 08:21 Dose: Not Given Pantoprazole Sodium (Protonix Ec Tab) 40 mg PO DAILY [facility] Last Admin: 03/16/18 08:21 Dose: 40 mg - Labs Labs: 03/16/18 05:40 03/16/18 05:40 Assessment and Plan - Assessment and Plan (Free Text) Plan: 63 y/o male with PMH of HTN, HLD, DM2, had presented recently to ER with headache and lightheadedness worsening with movement. MRI at the time showed an acute cerebellar infarct. Patient did not met criteria for TPA.Now he is in acute rehab for PT. Denies any CP/SOB, dizziness, or focal weakness at this time. 1. Acute Cerebellar infarct Continue PT on ASa, plavix, statin better BP and glycemic control psychology consult on Meclizine PRN for dizziness 2. Hypertension controlled continue lisinopril 3. DM complaining of diarrhea from Metformin and refusing to take it Decreased dose from 1000 to 850 mg po BID Increase Glucotrol from 5 to 10 mg PO QD Continue Accuchecsk, insulin coverage and diabetic diet 4. Dyslipidemia on statin 5. DVt prophylaxis on Lovenox
[2018-03-17] MEDS: Insulin Regular 100 units/ml SC SCH ×2 (06:38→21:56)
[2018-03-17] MEDS: Enoxaparin 40 mg Syringe SC SCH (08:22)
[2018-03-17] MEDS: Ammonium Lactate 12% Cream (140 g) TOP SCH (08:23)
[2018-03-17] MEDS: GlipiZIDE 10 mg SR Tab PO SCH (08:23)
[2018-03-17] MEDS: Pantoprazole 40 mg EC Tab PO SCH (08:23)
[2018-03-18] MEDS: Insulin Regular 100 units/ml SC SCH ×2 (07:09→22:00)
[2018-03-18] MEDS: Enoxaparin 40 mg Syringe SC SCH (08:51)
[2018-03-18] MEDS: Pantoprazole 40 mg EC Tab PO SCH (08:51)
[2018-03-18] MEDS: GlipiZIDE 10 mg SR Tab PO SCH (08:51)
[2018-03-18] MEDS: Ammonium Lactate 12% Cream (140 g) TOP SCH (08:52)
--- NOTE | 2018-03-18 12:17 | PCM.PSYTMC ---
Acute Rehab Team Conference - - Vital Signs: Vital Signs (Last 8 Hours): Vital Signs 03/18/18 03/18/18 03/18/18 08:52 09:20 10:06 Temperature 97.3 F L 97.3 F L Pulse Rate 75 75 Respiratory 19 19 Rate Blood Pressure 98/64 L 98/64 L 98/64 L O2 Sat by Pulse 96 Oximetry Pain: 0 - Precautions: Precautions: Fall Prevention - Medications/Other Issues: Comment: REFUSING TO TAKE METFORMIN. MD AWARE - Consults: Comment: Dr. Cruz, Dr. Pavon - Toileting: Toileting: Supervision - Bladder Management: Bladder Pattern: Normal Voiding Method: Toilet, Urinal Bladder Management: Supervision Other Intervention:: 0 - Transfers: Transfers: Supervision - ADL's: ADL's: Supervision - Pain Management: Other Intervention:: NONE - Patient/Family Teaching: Other Intervention:: Care post CVA and safety precatuions - Goals/Time Frame: Comment: Per multidisciplinary care plan and goals - Provider: Registered Nurse:: Brenda Cabrera Physical Therapy - Bed Mobility Bed Mobility: Supervision, Verbal Cues - Transfers Wheelchair to Mat: Supervision, Verbal Cues, Contact Guard Sit to Stand: Supervision, Verbal Cues - Ambulation Level of Assistance: Supervision, Verbal Cues, Contact Guard Distance (ft.): 200 Assistive Devices: N/A Orthoses: n/a Comment: -200 feet x repeated trials with rest breaks. -incidental CG 2' to poor safety. -level surface with unsteady pattern. -VCs to increase LLE hip flexion as patient lacks clearance during gait and uses rigid stiff LLE pattern. -patient with poor-carry over with prior educated techniques and appears to lack attention or motivation to change gait pattern. -instances of scissoring noted at times which patient can self-correct with CG/CS - Stair Negotiation Stairs: Level of Assistance: Supervision, Verbal Cues, Contact Guard Stairs: Assistive Devices: Left Handrail, Right Handrail Comment: 1 flight 8 inch steps with L rail on ascent and R rail on descent. - patient self-selects reciprocal pattern. -unsteady gait on descent with CG required for safety; patient states "I got it" and requested PT to remove external support - Standing Balance Static Stand: Supervision Comment: no device - Pain Pain (assessed during therapy session): 7 Comment: L shoulder -- pt refuses intervention at this time - Insight/Carryover Insight/Carryover: Poor - Patient/Family Education Comment: safety, therapy schedule, therapy goals, stroke recovery, smoking cessation, improved mobility patterns - Assessment/Plan Assessment: Mr. Medina continues to lack insight into his deficits and how they impact his safety with his functional mobility. Pt continues to present with flat affect and decreased motivation to participate in therapies; patient frequently states "let's just get this done so I can go back to bed". Pt appears to be primarily limited by baseline vision changes as well as impaired L sided motor control s/p previous stroke. Pt follows commands but at times is impulsive in his movements with inability to determine the lack of safety with rapid motions. PT recommends continued skilled therapy to reduce burden of care and maximize safety and independence with all tasks. PT recommends home discharge with intermittent supervision; patient will require assistance for caring for his children. PT recommends home therapy services. - Goals Tiimeframe: 5 days Goals: I with bed/mat mobility. mod I with transfers. mod I x 50 feet without device to ambulate household distances. S x 250 feet without device to ambulate in community. 1 flight of steps with S with single rail without losses of balance - Provider Physical Therapist:: Fain Mathur License Number:: [id number] Occupational Therapy - Arousal/Attention/Orientation Level of Consciousness: Awake, Alert Patient Orientation: Person, Place, Time - ADL/IADL Self Feeding: Set-up Help Grooming: Set-up Help Dressing-Upper Ext: Supervision Dressing-Lower Ext: Contact Guard - Sitting Balance Static Sitting: Supervision Dynamic Sitting: Requires supervision - Transfers Wheelchair to Bed Transfers: Supervision, Contact Guard Toilet Transfers: Supervision, Contact Guard - Wheelchair Management Level of Assistance: Supervision - Upper Extremity Status Right Upper Extremity Comment: WFL Left Upper Extremity Comment: decreased FM coordination LUE. AROM 3+/5 shoulder, elbow, wrist. impaired grasp strength LUE 2+/5 /impaired opposition - Pain Pain (assessed during therapy session): 0 - Insight/Carryover Insight/Carryover: Good - Patient/Family Education Comment: ae/dme education, safety awareness, cva education - Assessment/Plan Assessment: Patient is 63 yo m s/p acute CVA. Patient presenting with impaired dynamic standing balance, impaired activity tolerance, impaired safety awareness, decreased ROM/strength in LUE , pt also demoes poor insight into defecits. these aforementioned defecits impact pt's ability to complete adls safely and effectively. pt making gains in therapy however still requires intermittent cga for losses of balance during unsupported standing tasks, pt also requires moderate cueing for safety. - Goals Timeframe: 1 week - Provider Occupational Therapist:: Selma Thomason License Number: [id number] Speech Therapy - Consult Information Patient on Program: Yes Medical Diagnosis: CVA Treatment Diagnosis: mild-moderate cognitive linguistic deficits - Assessment Problem Solving Impairment: Mild Memory Impairment: Mild - Plan Assessment: Rosalio Medina presents with mild-moderate cognitive linguistic deficits characterized by impaired short-term memory, thought organization, reasoning, problem solving, and insight all of which negatively impact pt's safety and functional independence. Pt would benefit from ST 3-5x/week for improved cognition and safety. Barriers to learning include cognitive deficits, impaired insight, and fluctuating pt motivation. Plan: Continue Speech/Language Therapy Frequency: 3-5 times per week Duration: 1 week Goals/Timeframe: Please see progress note dated 03/16/18 for updated goals/POC Recommendations: Continue ST 3-5x/week for improved cognition and safety - Provider Therapist: Dulce Simms License Number: [id number] Recreational Therapy - Participation Participation: Monitors His/Her Own Leisure Time - Attendance Attendance: Daily - Activities Leisure Activities: Television - Socialization Level of Socialization: Initiates/interacts freely with care givers and peer - Diversional Time Diversional Time: resting, watching television - Assessment Assessment/Plan: Pt is engaged in independent leisure tasks in his room such as resting or watching television throughout his stay on unit. Pt had participated in 5 second rule and require min-mod verbal cues for cues for initiation and for error recognition to categories at times. Pt's mood continues to be flat and requires verbal cues for initiation to attend to task. Pt declined to attend the stroke education group. Pt would benefit from recreation therapy sessions if agreeable to improve memory recall, initiation, and attention to task. Will continue to encourage throughout stay on unit. Problems Currently Limiting Participation: decrease leisure awareness level, poor safety insight, withdrawn behavior, decrease leisure interest, L side residual weakness Goals and Time Frame: Pt will be encouraged to participate in 1:1 and group recreation therapy sessions 3-5x week to improve leisure awareness level, attention to task, arousal level, and improve insight of safety and deficits. - Provider Therapist: Tessie Zaidi Nutrition - Current Diet Current Diet/Supplement/Feedings: Moderate consistent CHO 2 gram Na low fat/low cholesterol diet - Appetite Percent Meal Consumed: 50-74% - Comments Comments: Pt consumes 100% of what he likes, severely limiting CHO, Refusing pancakes, bread. - Assessment/Goals/Time Frame Assessments/Goals/Time Frame: Pt at low nutritional risk. no goals. Follow-up due on 03/25/2018 - Provider Provider: Prerna Cooper Case Management - Psychosocial Assessment Support Systems: Funsherpa and Norbert Lewis (mother/father)- [phone] Psychological Interventions/Needs: Patient is alert, however, demonstrates impairments in insight and safety awareness Discharge Concerns: Patient will likely require 24 hour supervision due to cognitive deficits. Patient/Family Meeting: CM met with patient and rehab team Intervention/Goal/Outcome: 1. Goal: Supervision overall? 2. Plan: Home vs [facility] pending progress and family support. 3. Patient to be reteamed next week for most appropriate discharge date and plan. 4. emotional support - Discharge Plan Discharge Plan: Subacute care - Provider Provider: Kalia Trujillo License Number: [id number] Rehabilitation Plan - Treatment Plan Treatment Plan: Physical Therapy, Occupational Therapy, Speech, Dietary, Patient/Family Education - Recommendation Recommendation: Physical Therapy, Occupational Therapy, Speech, Dietary - Discharge Plan Discharge to: Subacute (03/21)
--- NOTE | 2018-03-18 12:53 | CP.PCM.PN ---
Subjective - Date & Time of Evaluation Date of Evaluation: 03/15/18 Time of Evaluation: 12:00 - Subjective Subjective: no acute complaints at present Objective - Vital Signs/Intake and Output Vital Signs (last 24 hours): Temp Pulse Resp BP Pulse Ox 97.3 F L 75 19 98/64 L 96 03/18/18 10:06 03/18/18 10:06 03/18/18 10:06 03/18/18 10:06 03/18/18 09:20 - Medications Medications: Current Medications Aspirin (Ecotrin) 81 mg PO DAILY [facility] Last Admin: 03/18/18 08:51 Dose: 81 mg Atorvastatin Calcium (Lipitor) 40 mg PO DIN [facility] Last Admin: 03/17/18 17:01 Dose: 40 mg Clopidogrel Bisulfate (Plavix) 75 mg PO DAILY [facility] Last Admin: 03/18/18 08:51 Dose: 75 mg Enoxaparin Sodium (Lovenox) 40 mg SC DAILY [facility]; Protocol Last Admin: 03/18/18 08:51 Dose: 40 mg Glipizide (Glucotrol Xl) 10 mg PO BRK [facility] Last Admin: 03/18/18 08:51 Dose: 10 mg Insulin Human Regular (Humulin R) 0 units SC 0630,2100 [facility]; Protocol Last Admin: 03/18/18 07:09 Dose: 1 unit Lactic Acid (Lac-Hydrin 12% Cream (140 G)) 0 ea TOP DAILY [facility] Last Admin: 03/18/18 08:52 Dose: 1 applic Lisinopril (Zestril) 20 mg PO DAILY [facility] Last Admin: 03/18/18 08:52 Dose: Not Given Meclizine HCl (Antivert) 12.5 mg PO Q8 [facility] Last Admin: 03/18/18 05:45 Dose: 12.5 mg Metformin HCl (Glucophage) 850 mg PO BIDWM [facility] Last Admin: 03/18/18 08:52 Dose: Not Given Pantoprazole Sodium (Protonix Ec Tab) 40 mg PO DAILY [facility] Last Admin: 03/18/18 08:51 Dose: 40 mg - Labs Labs: 03/16/18 05:40 03/16/18 05:40 - Head Exam Head Exam: ATRAUMATIC, NORMAL INSPECTION, NORMOCEPHALIC - Eye Exam Eye Exam: EOMI, Normal appearance, PERRL Pupil Exam: NORMAL ACCOMODATION - ENT Exam ENT Exam: Mucous Membranes Moist, Normal Exam - Neck Exam Neck Exam: Full ROM, Normal Inspection - Respiratory Exam Respiratory Exam: NORMAL BREATHING PATTERN - Cardiovascular Exam Cardiovascular Exam: REGULAR RHYTHM - GI/Abdominal Exam GI & Abdominal Exam: Soft, Normal Bowel Sounds - Exam External exam: NORMAL EXTERNAL EXAM - Extremities Exam Extremities Exam: Full ROM, Normal Capillary Refill - Back Exam Back Exam: NORMAL INSPECTION - Neurological Exam Neurological Exam: Alert, Awake Neuro motor strength exam: Left Upper Extremity: 3, Left Lower Extremity: 3 - Psychiatric Exam Psychiatric exam: Normal Affect, Normal Mood - Skin Skin Exam: Dry, Intact, Normal Color Assessment and Plan (1) DM2 (diabetes mellitus, type 2) Status: Acute (2) DVT prophylaxis Status: Acute (3) HLD (hyperlipidemia) Status: Acute (4) HTN (hypertension) Status: Acute (5) Status post cerebrovascular accident Assessment & Plan: plan for physical, occupational, rec and speech therapy Status: Acute (6) Dizziness Status: Acute (7) Near syncope Status: Acute
--- NOTE | 2018-03-18 12:56 | CP.PCM.PN ---
Subjective - Date & Time of Evaluation Date of Evaluation: 03/17/18 Time of Evaluation: 17:00 - Subjective Subjective: no acute neck or back pain Objective - Vital Signs/Intake and Output Vital Signs (last 24 hours): Temp Pulse Resp BP Pulse Ox 97.3 F L 75 19 98/64 L 96 03/18/18 10:06 03/18/18 10:06 03/18/18 10:06 03/18/18 10:06 03/18/18 09:20 - Medications Medications: Current Medications Aspirin (Ecotrin) 81 mg PO DAILY [facility] Last Admin: 03/18/18 08:51 Dose: 81 mg Atorvastatin Calcium (Lipitor) 40 mg PO DIN [facility] Last Admin: 03/17/18 17:01 Dose: 40 mg Clopidogrel Bisulfate (Plavix) 75 mg PO DAILY [facility] Last Admin: 03/18/18 08:51 Dose: 75 mg Enoxaparin Sodium (Lovenox) 40 mg SC DAILY [facility]; Protocol Last Admin: 03/18/18 08:51 Dose: 40 mg Glipizide (Glucotrol Xl) 10 mg PO BRK [facility] Last Admin: 03/18/18 08:51 Dose: 10 mg Insulin Human Regular (Humulin R) 0 units SC 0630,2100 [facility]; Protocol Last Admin: 03/18/18 07:09 Dose: 1 unit Lactic Acid (Lac-Hydrin 12% Cream (140 G)) 0 ea TOP DAILY [facility] Last Admin: 03/18/18 08:52 Dose: 1 applic Lisinopril (Zestril) 20 mg PO DAILY [facility] Last Admin: 03/18/18 08:52 Dose: Not Given Meclizine HCl (Antivert) 12.5 mg PO Q8 [facility] Last Admin: 03/18/18 05:45 Dose: 12.5 mg Metformin HCl (Glucophage) 850 mg PO BIDWM [facility] Last Admin: 03/18/18 08:52 Dose: Not Given Pantoprazole Sodium (Protonix Ec Tab) 40 mg PO DAILY [facility] Last Admin: 03/18/18 08:51 Dose: 40 mg - Labs Labs: 03/16/18 05:40 03/16/18 05:40 - Head Exam Head Exam: ATRAUMATIC, NORMAL INSPECTION, NORMOCEPHALIC - Eye Exam Eye Exam: EOMI, Normal appearance, PERRL Pupil Exam: NORMAL ACCOMODATION - ENT Exam ENT Exam: Mucous Membranes Moist, Normal Exam - Neck Exam Neck Exam: Normal Inspection - Respiratory Exam Respiratory Exam: Clear to Ausculation Bilateral, NORMAL BREATHING PATTERN - Cardiovascular Exam Cardiovascular Exam: REGULAR RHYTHM - GI/Abdominal Exam GI & Abdominal Exam: Soft, Normal Bowel Sounds - Rectal Exam Rectal Exam: NORMAL INSPECTION - Exam External exam: NORMAL EXTERNAL EXAM - Extremities Exam Extremities Exam: Full ROM, Normal Capillary Refill, Normal Inspection - Back Exam Back Exam: NORMAL INSPECTION - Neurological Exam Neurological Exam: Alert, Awake Neuro motor strength exam: Left Upper Extremity: 3, Left Lower Extremity: 3 - Psychiatric Exam Psychiatric exam: Normal Affect, Normal Mood - Skin Skin Exam: Dry, Intact, Normal Color Assessment and Plan (1) DM2 (diabetes mellitus, type 2) Status: Acute (2) DVT prophylaxis Status: Acute (3) HLD (hyperlipidemia) Status: Acute (4) HTN (hypertension) Status: Acute (5) Status post cerebrovascular accident Assessment & Plan: plan fo rrange of motion, strenghtening, transfers, gait and adl eval and equipment eval Status: Acute (6) Dizziness Status: Acute (7) Near syncope Status: Acute
--- NOTE | 2018-03-18 12:59 | CP.PCM.PN ---
Subjective - Date & Time of Evaluation Date of Evaluation: 03/18/18 Time of Evaluation: 12:30 - Subjective Subjective: no arm or leg pain. freindly Objective - Vital Signs/Intake and Output Vital Signs (last 24 hours): Temp Pulse Resp BP Pulse Ox 97.3 F L 75 19 98/64 L 96 03/18/18 10:06 03/18/18 10:06 03/18/18 10:06 03/18/18 10:06 03/18/18 09:20 - Medications Medications: Current Medications Aspirin (Ecotrin) 81 mg PO DAILY [facility] Last Admin: 03/18/18 08:51 Dose: 81 mg Atorvastatin Calcium (Lipitor) 40 mg PO DIN [facility] Last Admin: 03/17/18 17:01 Dose: 40 mg Clopidogrel Bisulfate (Plavix) 75 mg PO DAILY [facility] Last Admin: 03/18/18 08:51 Dose: 75 mg Enoxaparin Sodium (Lovenox) 40 mg SC DAILY [facility]; Protocol Last Admin: 03/18/18 08:51 Dose: 40 mg Glipizide (Glucotrol Xl) 10 mg PO BRK [facility] Last Admin: 03/18/18 08:51 Dose: 10 mg Insulin Human Regular (Humulin R) 0 units SC 0630,2100 [facility]; Protocol Last Admin: 03/18/18 07:09 Dose: 1 unit Lactic Acid (Lac-Hydrin 12% Cream (140 G)) 0 ea TOP DAILY [facility] Last Admin: 03/18/18 08:52 Dose: 1 applic Lisinopril (Zestril) 20 mg PO DAILY [facility] Last Admin: 03/18/18 08:52 Dose: Not Given Meclizine HCl (Antivert) 12.5 mg PO Q8 [facility] Last Admin: 03/18/18 05:45 Dose: 12.5 mg Metformin HCl (Glucophage) 850 mg PO BIDWM [facility] Last Admin: 03/18/18 08:52 Dose: Not Given Pantoprazole Sodium (Protonix Ec Tab) 40 mg PO DAILY [facility] Last Admin: 03/18/18 08:51 Dose: 40 mg - Labs Labs: 03/16/18 05:40 03/16/18 05:40 - Head Exam Head Exam: ATRAUMATIC, NORMAL INSPECTION, NORMOCEPHALIC - Eye Exam Eye Exam: EOMI, Normal appearance, PERRL Pupil Exam: NORMAL ACCOMODATION - ENT Exam ENT Exam: Mucous Membranes Moist, Normal Exam - Neck Exam Neck Exam: Normal Inspection - Respiratory Exam Respiratory Exam: Clear to Ausculation Bilateral, NORMAL BREATHING PATTERN - Cardiovascular Exam Cardiovascular Exam: REGULAR RHYTHM - GI/Abdominal Exam GI & Abdominal Exam: Soft, Normal Bowel Sounds - Rectal Exam Rectal Exam: NORMAL INSPECTION - Exam External exam: NORMAL EXTERNAL EXAM - Extremities Exam Extremities Exam: Full ROM, Normal Capillary Refill, Normal Inspection - Back Exam Back Exam: NORMAL INSPECTION - Neurological Exam Neurological Exam: Alert, Awake Neuro motor strength exam: Left Upper Extremity: 3, Left Lower Extremity: 3 - Psychiatric Exam Psychiatric exam: Normal Affect, Normal Mood - Skin Skin Exam: Dry, Intact, Normal Color Assessment and Plan (1) DM2 (diabetes mellitus, type 2) Status: Acute (2) DVT prophylaxis Status: Acute (3) HLD (hyperlipidemia) Status: Acute (4) HTN (hypertension) Status: Acute (5) Status post cerebrovascular accident Assessment & Plan: status post team, DC for 03/21 [facility] Status: Acute (6) Dizziness Status: Acute (7) Near syncope Status: Acute
--- NOTE | 2018-03-18 13:54 | CP.PCM.PN ---
Subjective - Date & Time of Evaluation Date of Evaluation: 03/18/18 Time of Evaluation: 11:00 - Subjective Subjective: Patient seen and examined. Claimed he had improved and wanted to go home. Objective - Vital Signs/Intake and Output Vital Signs (last 24 hours): Temp Pulse Resp BP Pulse Ox 97.3 F L 75 19 98/64 L 96 03/18/18 10:06 03/18/18 10:06 03/18/18 10:06 03/18/18 10:06 03/18/18 09:20 - Medications Medications: Current Medications Aspirin (Ecotrin) 81 mg PO DAILY [facility] Last Admin: 03/18/18 08:51 Dose: 81 mg Atorvastatin Calcium (Lipitor) 40 mg PO DIN [facility] Last Admin: 03/17/18 17:01 Dose: 40 mg Clopidogrel Bisulfate (Plavix) 75 mg PO DAILY [facility] Last Admin: 03/18/18 08:51 Dose: 75 mg Enoxaparin Sodium (Lovenox) 40 mg SC DAILY [facility]; Protocol Last Admin: 03/18/18 08:51 Dose: 40 mg Glipizide (Glucotrol Xl) 10 mg PO BRK [facility] Last Admin: 03/18/18 08:51 Dose: 10 mg Insulin Human Regular (Humulin R) 0 units SC 0630,2100 [facility]; Protocol Last Admin: 03/18/18 07:09 Dose: 1 unit Lactic Acid (Lac-Hydrin 12% Cream (140 G)) 0 ea TOP DAILY [facility] Last Admin: 03/18/18 08:52 Dose: 1 applic Lisinopril (Zestril) 20 mg PO DAILY [facility] Last Admin: 03/18/18 08:52 Dose: Not Given Meclizine HCl (Antivert) 12.5 mg PO Q8 [facility] Last Admin: 03/18/18 13:11 Dose: 12.5 mg Metformin HCl (Glucophage) 850 mg PO BIDWM [facility] Last Admin: 03/18/18 08:52 Dose: Not Given Pantoprazole Sodium (Protonix Ec Tab) 40 mg PO DAILY [facility] Last Admin: 03/18/18 08:51 Dose: 40 mg - Labs Labs: 03/16/18 05:40 03/16/18 05:40 - Constitutional Appears: No Acute Distress - Head Exam Head Exam: ATRAUMATIC - Eye Exam Eye Exam: absent: Scleral icterus - ENT Exam ENT Exam: Mucous Membranes Moist - Neck Exam Neck Exam: absent: Meningismus - Respiratory Exam Respiratory Exam: absent: Rales, Rhonchi, Wheezes, Respiratory Distress - Cardiovascular Exam Cardiovascular Exam: REGULAR RHYTHM, +S1, +S2 - GI/Abdominal Exam GI & Abdominal Exam: Soft. absent: Tenderness - Rectal Exam Rectal Exam: Deferred - Neurological Exam Neurological Exam: Alert, Oriented x3 - Psychiatric Exam Psychiatric exam: Normal Affect - Skin Skin Exam: Dry, Intact Assessment and Plan - Assessment and Plan (Free Text) Assessment: 63 yo male with history of HTN, HLD and DM2 was admitted at [facility] because of headache and lightheadedness worsening with movement. MRI showed acute cerebellar infarct. He was transferred to [facility] for therapy on 03/09/18 when he was hemodynamically and neurologically stable. 1. Acute Cerebellar infarct Continue PT on ASA, Plavix, statin 2. Hypertension BP controlled continue Lisinopril 3. DM2 BS controlled Metformin 850 mg po BID Glucotrol XL 10 mg PO QD 4. Dyslipidemia on statin 5. DVT prophylaxis on Lovenox
[2018-03-19] MEDS: Insulin Regular 100 units/ml SC SCH ×2 (06:06→21:00)
[2018-03-19 06:26] LABS: HEMOGLOBIN 13.8 g/dL (12.0-18.0); MEAN CELL VOLUME 94.1 fl (80.0-94.0); MEAN CORPUSCULAR HEMOGLOBIN 30.9 pg (27.0-31.0); MEAN CORPUSCULAR HGB CONC 32.9 g/dL (33.0-37.0); RBC 4.47 Mil/uL (4.40-5.90); RED CELL DISTRIBUTION WIDTH 13.2 % (11.5-14.5); WHITE BLOOD COUNT 5.9 K/uL (4.8-10.8)
[2018-03-19 06:39] LABS: BLOOD UREA NITROGEN 32 mg/dl (9-20); CALCIUM 9.4 mg/dL (8.4-10.2); GFR NON-AFRICAN AMERICAN 56
[2018-03-19] MEDS: Enoxaparin 40 mg Syringe SC SCH (08:39)
[2018-03-19] MEDS: GlipiZIDE 10 mg SR Tab PO SCH (08:39)
[2018-03-19] MEDS: Pantoprazole 40 mg EC Tab PO SCH (08:40)
[2018-03-19] MEDS: Ammonium Lactate 12% Cream (140 g) TOP SCH (08:40)
[2018-03-19] MEDS ORDERED: Sod Polystyrene Sulf 15 gm/60 ml Susp PO ONE (19:12)
[2018-03-20] MEDS: Insulin Regular 100 units/ml SC SCH ×2 (06:12→21:33)
--- NOTE | 2018-03-20 08:11 | CP.PCM.CON ---
History of Present Illness - History of Present Illness History of Present Illness: Pt is a 63 year old male admitted to [facility] following a CVA. Pt reported previous CVA's in the past, and a history of DM and HTN> See medical record for complete medical history and medication list. Social History: pt reported l iving with his two children age 8. He reported having 5 children in total and being close to all. Pt spoke of the of his girlfriend of 12 years within the last year and coping with the above. Family were described as a source of support. Ed.Voc: pt raised in [place], graduated HS, and worked as a fork chairlift operator. Pt was defended on interview, angry/irritable and not disclosive. He reported frustration with being "bothered... every five minutes." Pt denied a psych history and denied a history of alc/sub abuse. Note, medical record includes of desription of alcohol abuse. MSE: Pt alert, oriented, relevant/coherent, no psychosis, affect constricted, mood irritable, angry, no psychosis, no si no hi ideation. Dx: Adjustment Dx Alcohol abuse included in the record. Pt is being discharged so further services will not be provided. Sub abuse services reccomended. Thank you, Past Patient History - Infectious Disease Hx of Infectious Diseases: None - Past Medical History & Family History Past Medical History?: Yes - Past Social History Smoking Status: Current Some Days Smoker - CARDIAC Hx Hypercholesterolemia: Yes Hx Hypertension: Yes - PULMONARY Hx Respiratory Disorders: Yes (SMOKES CIGARETTES 1 A DAY) - NEUROLOGICAL HX Cerebrovascular Accident: Yes - HEENT Hx HEENT Problems: No - RENAL Hx Chronic Kidney Disease: No - ENDOCRINE/METABOLIC Hx Diabetes Mellitus Type 2: Yes - HEMATOLOGICAL/ONCOLOGICAL Hx Blood Disorders: No - INTEGUMENTARY Hx Dermatological Problems: Yes Other/Comment: SCAR TO RIGHT LOWER BACK-BACK SX - MUSCULOSKELETAL/RHEUMATOLOGICAL Hx Falls: Yes - GASTROINTESTINAL Hx Gastrointestinal Disorders: No - GENITOURINARY/GYNECOLOGICAL Hx Genitourinary Disorders: No - PSYCHIATRIC Hx Psychophysiologic Disorder: No Hx Substance Use: No - SURGICAL HISTORY Hx Surgeries: Yes (RIGHTLATERAL LOWER BACK SX.) - ANESTHESIA Hx Anesthesia: No Meds Allergies/Adverse Reactions: Allergies Allergy/AdvReac Type Severity Reaction Status Date / Time No Known Allergies Allergy Verified 03/10/18 05:45 - Medications Medications: Current Medications Aspirin (Ecotrin) 81 mg PO DAILY [facility] Last Admin: 03/19/18 08:40 Dose: 81 mg Atorvastatin Calcium (Lipitor) 40 mg PO DIN [facility] Last Admin: 03/19/18 17:16 Dose: 40 mg Clopidogrel Bisulfate (Plavix) 75 mg PO DAILY [facility] Last Admin: 03/19/18 08:40 Dose: 75 mg Enoxaparin Sodium (Lovenox) 40 mg SC DAILY [facility]; Protocol Last Admin: 03/19/18 08:39 Dose: 40 mg Glipizide (Glucotrol Xl) 10 mg PO BRK [facility] Last Admin: 03/19/18 08:39 Dose: 10 mg Insulin Human Regular (Humulin R) 0 units SC 0630,2100 [facility]; Protocol Last Admin: 03/20/18 06:12 Dose: Not Given Lactic Acid (Lac-Hydrin 12% Cream (140 G)) 0 ea TOP DAILY [facility] Last Admin: 03/19/18 08:40 Dose: 1 applic Lisinopril (Zestril) 20 mg PO DAILY [facility] Last Admin: 03/19/18 08:40 Dose: 20 mg Meclizine HCl (Antivert) 12.5 mg PO Q8 [facility] Last Admin: 03/20/18 06:10 Dose: 12.5 mg Metformin HCl (Glucophage) 850 mg PO BIDWM [facility] Last Admin: 03/19/18 16:54 Dose: Not Given Pantoprazole Sodium (Protonix Ec Tab) 40 mg PO DAILY [facility] Last Admin: 03/19/18 08:40 Dose: 40 mg Results - Vital Signs Recent Vital Signs: Last Vital Signs Temp 97.0 F L 03/20/18 07:36 Pulse 83 03/20/18 07:36 Resp 18 03/20/18 07:36 BP 121/66 03/19/18 20:17 Pulse Ox 97 03/20/18 07:36 - Labs Result Diagrams: 03/19/18 06:00 03/19/18 06:00 Labs: Laboratory Results - last 24 hr 03/19/18 03/20/18 20:59 06:12 POC Glucose (mg/dL) 209 H 180 H
[2018-03-20] MEDS: Ammonium Lactate 12% Cream (140 g) TOP SCH (08:39)
[2018-03-20] MEDS: GlipiZIDE 10 mg SR Tab PO SCH (08:39)
[2018-03-20] MEDS: Enoxaparin 40 mg Syringe SC SCH (08:39)
[2018-03-20] MEDS: Pantoprazole 40 mg EC Tab PO SCH (08:39)
--- NOTE | 2018-03-20 12:29 | CP.PCM.PN ---
Subjective - Date & Time of Evaluation Date of Evaluation: 03/20/18 Time of Evaluation: 12:00 - Subjective Subjective: no acute complaints of any pain Objective - Vital Signs/Intake and Output Vital Signs (last 24 hours): Temp Pulse Resp BP Pulse Ox 97.0 F L 83 18 85/53 L 97 03/20/18 07:36 03/20/18 08:39 03/20/18 07:36 03/20/18 08:39 03/20/18 07:36 - Medications Medications: Current Medications Aspirin (Ecotrin) 81 mg PO DAILY [facility] Last Admin: 03/20/18 08:39 Dose: 81 mg Atorvastatin Calcium (Lipitor) 40 mg PO DIN [facility] Last Admin: 03/19/18 17:16 Dose: 40 mg Clopidogrel Bisulfate (Plavix) 75 mg PO DAILY [facility] Last Admin: 03/20/18 08:39 Dose: 75 mg Enoxaparin Sodium (Lovenox) 40 mg SC DAILY [facility]; Protocol Last Admin: 03/20/18 08:39 Dose: 40 mg Glipizide (Glucotrol Xl) 10 mg PO BRK [facility] Last Admin: 03/20/18 08:39 Dose: 10 mg Insulin Human Regular (Humulin R) 0 units SC 0630,2100 [facility]; Protocol Last Admin: 03/20/18 06:12 Dose: Not Given Lactic Acid (Lac-Hydrin 12% Cream (140 G)) 0 ea TOP DAILY [facility] Last Admin: 03/20/18 08:39 Dose: 1 applic Lisinopril (Zestril) 20 mg PO DAILY [facility] Last Admin: 03/20/18 08:39 Dose: Not Given Meclizine HCl (Antivert) 12.5 mg PO Q8 [facility] Last Admin: 03/20/18 06:10 Dose: 12.5 mg Metformin HCl (Glucophage) 850 mg PO BIDWM [facility] Last Admin: 03/20/18 08:32 Dose: Not Given Pantoprazole Sodium (Protonix Ec Tab) 40 mg PO DAILY [facility] Last Admin: 03/20/18 08:39 Dose: 40 mg - Labs Labs: 03/19/18 06:00 03/19/18 06:00 - Head Exam Head Exam: ATRAUMATIC, NORMAL INSPECTION, NORMOCEPHALIC - Eye Exam Eye Exam: EOMI, Normal appearance, PERRL Pupil Exam: NORMAL ACCOMODATION - ENT Exam ENT Exam: Mucous Membranes Moist, Normal Exam - Neck Exam Neck Exam: Normal Inspection - Respiratory Exam Respiratory Exam: Clear to Ausculation Bilateral, NORMAL BREATHING PATTERN - Cardiovascular Exam Cardiovascular Exam: REGULAR RHYTHM - GI/Abdominal Exam GI & Abdominal Exam: Soft, Normal Bowel Sounds - Rectal Exam Rectal Exam: NORMAL INSPECTION - Exam External exam: NORMAL EXTERNAL EXAM - Extremities Exam Extremities Exam: Full ROM, Normal Capillary Refill, Normal Inspection - Back Exam Back Exam: NORMAL INSPECTION - Neurological Exam Neurological Exam: Alert, Awake Neuro motor strength exam: Left Upper Extremity: 3, Right Upper Extremity: 3, Left Lower Extremity: 3, Right Lower Extremity: 3 - Psychiatric Exam Psychiatric exam: Normal Affect, Normal Mood - Skin Skin Exam: Dry, Intact Assessment and Plan (1) DM2 (diabetes mellitus, type 2) Status: Acute (2) DVT prophylaxis Status: Acute (3) HLD (hyperlipidemia) Status: Acute (4) HTN (hypertension) Status: Acute (5) Status post cerebrovascular accident Assessment & Plan: plan for physical, occupational, rec speech therapy Dc for NOV 3 Status: Acute (6) Dizziness Status: Acute (7) Near syncope Status: Acute
--- NOTE | 2018-03-20 16:55 | CP.PCM.PN ---
Subjective - Date & Time of Evaluation Date of Evaluation: 03/20/18 Time of Evaluation: 18:45 - Subjective Subjective: Patient seen bedside .Lying in bed in NAD . Angry, upset Ready to go home tomorrow Hemodynamically stable As p[er sdtaff patient will be discharged in AM Objective - Vital Signs/Intake and Output Vital Signs (last 24 hours): Temp Pulse Resp BP Pulse Ox 97.0 F L 83 18 85/53 L 97 03/20/18 07:36 03/20/18 08:39 03/20/18 07:36 03/20/18 08:39 03/20/18 07:36 - Medications Medications: Current Medications Aspirin (Ecotrin) 81 mg PO DAILY [facility] Last Admin: 03/20/18 08:39 Dose: 81 mg Atorvastatin Calcium (Lipitor) 40 mg PO DIN [facility] Last Admin: 03/19/18 17:16 Dose: 40 mg Clopidogrel Bisulfate (Plavix) 75 mg PO DAILY [facility] Last Admin: 03/20/18 08:39 Dose: 75 mg Enoxaparin Sodium (Lovenox) 40 mg SC DAILY [facility]; Protocol Last Admin: 03/20/18 08:39 Dose: 40 mg Glipizide (Glucotrol Xl) 10 mg PO BRK [facility] Last Admin: 03/20/18 08:39 Dose: 10 mg Insulin Human Regular (Humulin R) 0 units SC 0630,2100 [facility]; Protocol Last Admin: 03/20/18 06:12 Dose: Not Given Lactic Acid (Lac-Hydrin 12% Cream (140 G)) 0 ea TOP DAILY [facility] Last Admin: 03/20/18 08:39 Dose: 1 applic Lisinopril (Zestril) 20 mg PO DAILY [facility] Last Admin: 03/20/18 08:39 Dose: Not Given Meclizine HCl (Antivert) 12.5 mg PO Q8 [facility] Last Admin: 03/20/18 13:10 Dose: 12.5 mg Metformin HCl (Glucophage) 850 mg PO BIDWM [facility] Last Admin: 03/20/18 08:32 Dose: Not Given Pantoprazole Sodium (Protonix Ec Tab) 40 mg PO DAILY [facility] Last Admin: 03/20/18 08:39 Dose: 40 mg - Labs Labs: 03/19/18 06:00 03/19/18 06:00 - Constitutional Appears: Non-toxic, No Acute Distress - Head Exam Head Exam: ATRAUMATIC, NORMOCEPHALIC - ENT Exam ENT Exam: Mucous Membranes Moist - Neck Exam Neck Exam: Normal Inspection - Respiratory Exam Respiratory Exam: NORMAL BREATHING PATTERN - GI/Abdominal Exam GI & Abdominal Exam: absent: Distended - Neurological Exam Neurological Exam: Alert, Awake, CN II-XII Intact, Oriented x3 - Psychiatric Exam Psychiatric exam: Agitated, Flat Affect - Skin Skin Exam: Dry, Warm Assessment and Plan - Assessment and Plan (Free Text) Assessment: 63 yo male with history of HTN, HLD and DM2 was admitted at [facility] because of headache and lightheadedness worsening with movement. MRI showed acute cerebel lar infarct. He was transferred to [facility] for therapy on 03/09/18 when he was hemodynamically and neurologically stable. For discvharge in AM 1. Acute Cerebellar infarct Continue PT on ASA, Plavix, statin 2. Hypertension BP controlled continue Lisinopril 3. DM2 BS controlled Metformin 850 mg po BID Glucotrol XL 10 mg PO QD 4. Dyslipidemia on statin 5. DVT prophylaxis on Lovenox
[2018-03-21] MEDS: Insulin Regular 100 units/ml SC SCH (06:26)
[2018-03-21] MEDS ORDERED: GlipiZIDE 5 mg SR Tab PO SCH (08:00)
[2018-03-21] MEDS: Enoxaparin 40 mg Syringe SC SCH (08:23)
[2018-03-21] MEDS: Pantoprazole 40 mg EC Tab PO SCH (08:24)
[2018-03-21] MEDS: Ammonium Lactate 12% Cream (140 g) TOP SCH (08:25)
[2018-03-21 08:34] VITALS: BP 132/67; PULSE 81
[2018-03-21] MEDS: GlipiZIDE 10 mg SR Tab PO SCH (08:41)
[2018-03-21 08:42] VITALS: RESP 19; TEMP 98.3; O2SAT 97
--- NOTE | 2018-03-21 11:26 | CP.PCM.DIS ---
Provider - Provider Date of Admission: 03/09/18 18:14 Attending physician: Paola Staley MD Primary care physician: Jose Elias Wright MD Consults: Dr Lakhani Time Spent in preparation of Discharge (in minutes): 25 Diagnosis - Discharge Diagnosis (1) Cerebellar infarct Status: Acute Comment: continue ASA, Plavix and statin (2) HTN (hypertension) Status: Chronic Comment: BP stable. continue Lisinopril (3) DM2 (diabetes mellitus, type 2) Status: Chronic Comment: BS controlled. continue Metformin and Glucotrol XL (4) HLD (hyperlipidemia) Status: Chronic Comment: on statin Hospital Course - Lab Results Lab Results: Most Recent Lab Values WBC 5.9 K/uL (4.8-10.8) 03/19/18 06:00 RBC 4.47 Mil/uL (4.40-5.90) 03/19/18 06:00 Hgb 13.8 g/dL (12.0-18.0) 03/19/18 06:00 Hct 42.1 % (35.0-51.0) 03/19/18 06:00 MCV 94.1 fl (80.0-94.0) H 03/19/18 06:00 MCH 30.9 pg (27.0-31.0) 03/19/18 06:00 MCHC 32.9 g/dL (33.0-37.0) L 03/19/18 06:00 RDW 13.2 % (11.5-14.5) 03/19/18 06:00 Plt Count 312 K/uL (130-400) 03/19/18 06:00 Sodium 139 mmol/l (132-148) 03/19/18 06:00 Potassium 5.1 MMOL/L (3.6-5.0) H 03/19/18 06:00 Chloride 102 mmol/L (98-107) 03/19/18 06:00 Carbon Dioxide 24 mmol/L (22-30) 03/19/18 06:00 Anion Gap 18 (10-20) 03/19/18 06:00 BUN 32 mg/dl (9-20) H 03/19/18 06:00 Creatinine 1.3 mg/dl (0.8-1.5) 03/19/18 06:00 Est GFR ( Amer) > 60 03/19/18 06:00 Est GFR (Non-Af Amer) 56 03/19/18 06:00 POC Glucose (mg/dL) 115 mg/dL (65-110) H 03/21/18 06:25 Random Glucose 97 mg/dL (75-110) 03/19/18 06:00 Calcium 9.4 mg/dL (8.4-10.2) 03/19/18 06:00 - Hospital Course Hospital Course: 63 yo male with history of HTN, HLD and DM2 was admitted to [facility] on 03/09/18 for therapy after suffering from Acute Cerebellar CVA. Patient did not have focal neurologic deficit aside from some movement disorder. Patient did well and is now ready for DC. Discharge Exam - Head Exam Head Exam: ATRAUMATIC, NORMOCEPHALIC - Eye Exam Eye Exam: absent: Scleral icterus - ENT Exam ENT Exam: Mucous Membranes Moist - Respiratory Exam Respiratory Exam: absent: Rales, Rhonchi, Wheezes, Respiratory Distress - Cardiovascular Exam Cardiovascular Exam: REGULAR RHYTHM, +S1, +S2 - GI/Abdominal Exam GI & Abdominal Exam: Soft. absent: Tenderness - Rectal Exam Rectal Exam: Deferred - Back Exam Back exam: NORMAL INSPECTION - Neurological Exam Neurological exam: Alert, Oriented x3 - Psychiatric Exam Psychiatric exam: Flat Affect - Skin Skin Exam: Dry, Intact Discharge Plan - Discharge Medications Prescriptions: Atorvastatin [Lipitor] 40 mg PO DIN #30 tab Clopidogrel [Plavix] 75 mg PO DAILY #30 tab GlipiZIDE SR [Glucotrol XL] 10 mg PO BRK #30 tab Lisinopril [Zestril] 20 mg PO DAILY #30 tab metFORMIN [glucOPHAGE] 850 mg PO BIDWM #60 tab Pantoprazole [Protonix EC Tab] 40 mg PO DAILY #30 ect - Follow Up Plan Condition: GOOD Disposition: HOME/ ROUTINE Instructions: Aspirin, Atorvastatin, Clopidogrel, Glipizide, Lisinopril, Meclizine, Metformin, Pantoprazole, Going Home on Blood Thinners Referrals: Jose Elias Wright MD [Primary Care Provider] -
== END 2018-03-21 14:10 | disposition home health service (06) | DRG 57 ==
PROVIDERS: ADMIT Internal Medicine; ATTEND Internal Medicine
PROC: F08Z4FZ Home Management Treatment using Assistive, Adaptive, Supportive or Protective Equipment (ICD-10-PCS; principal; 2018-03-09)
PROC: F07M6FZ Therapeutic Exercise Treatment of Musculoskeletal System - Whole Body using Assistive, Adaptive, Supportive or Protective Equipment (ICD-10-PCS; 2018-03-09)
PROC: F07Z9FZ Gait Training/Functional Ambulation Treatment using Assistive, Adaptive, Supportive or Protective Equipment (ICD-10-PCS; 2018-03-09)
DX: I69.30 Unspecified sequelae of cerebral infarction (principal); G25.9 Extrapyramidal and movement disorder, unspecified; M62.81 Muscle weakness (generalized); R26.9 Unspecified abnormalities of gait and mobility; E11.9 Type 2 diabetes mellitus without complications; E78.00 Pure hypercholesterolemia, unspecified; E78.5 Hyperlipidemia, unspecified; F10.10 Alcohol abuse, uncomplicated; I10 Essential (primary) hypertension; Z79.84 Long term (current) use of oral hypoglycemic drugs; F17.200 Nicotine dependence, unspecified, uncomplicated